=== PATIENT | male | born 1975 ===

== ENCOUNTER 2023-03-24 10:47 | Emergency (ER) | payer OTHER, MEDICAID, SELFPAY ==
[2023-03-24 10:49] VITALS: BP 139/106; PULSE 88; RESP 15; TEMP 36.6; O2SAT 97; BMI 36.1
--- NOTE | 2023-03-24 14:58 | PC.NURSE ---
pt states it feels worse when he is sitting upright and best when he is laying down. was seen at the [facility] and got an EKG done. is hoping to hear the results of that today.
--- NOTE | 2023-03-24 15:33 | DI.RAD.S_ITS ---
PROCEDURE: XR CHEST 1V INDICATIONS: chest pain TECHNIQUE: One view of the chest was acquired. COMPARISON: None. FINDINGS: Surgical changes and devices: None. Lungs and pleura: Lungs are clear. No pleural effusions or pneumothorax. Mediastinum: Mediastinal contours appear normal. Heart size is normal. Bones and chest wall: No suspicious bony lesions. Overlying soft tissues appear unremarkable. IMPRESSION: No acute cardiopulmonary process. Dictated by: Leo Gu M.D. on 03/24/2023 at 15:51 Approved by: Leo Gu M.D. on 03/24/2023 at 15:53
--- NOTE | 2023-03-24 16:03 | ED_ITS ---
HPI - Extremity Injury (Upper) <Tanya Lo PA-C - Last Filed: 03/24/23 20:58> General Chief Complaint: Extremity Injury, Upper Stated Complaint: sent by [facility] pain in LT arm Time Seen by Provider: 03/24/23 15:30 Source: patient Mode of arrival: Ambulatory History of Present Illness HPI narrative: This is a 48-year-old male who presents with concern for a gout attack in his left foot that has been present for a few weeks and is gradually resolving but still quite painful and was also sent by the walk-in clinic for concern for possible cardiac problem due to left arm pain. Patient states he has had some aching sensation in his left biceps for about the past week he says that he did not do anything to injure it has not been overusing it and the pain has not been getting worse but has also not improved. He states he does not notice it as much when he is laying flat but he does notice it more when he is sitting upright. Not noticed any tingling numbness in his hands or change in sensation or difference in temperature. He has never had pain like this in his arm before he says it is quite mild but it is bothersome and that the walk-in clinic would only see him for 1 problem and they were most concerned that this could be cardiac and so they did not evaluate him for his gout which is really what he came in for. He is a nonsmoker but does note that since he got out of correction he has been on house arrest/with a bracelet on and has been at home quite a bit sitting on the couch and watching TV. He does get up and move around. He states his gout is similar to previous episodes he has not had it for about 6 years although he states he has been living on hot dogs and lunch meat and he suspects this might be why this happened. He states his base of his great toe was very inflamed and swollen and red and tender a couple weeks ago has gradually subsided but still painful to walk. He denies chest pain, neck pain, shortness of breath, back pain or any other symptoms. Related Data Allergies Allergy/AdvReac Type Severity Reaction Status Date / Time No Known Drug Allergies Allergy Verified 03/24/23 10:49 Review of Systems <Tanya Lo PA-C - Last Filed: 03/24/23 20:58> Review of Systems Narrative: See HPI Patient History <Tanya Lo PA-C - Last Filed: 03/24/23 20:58> Surgical History Anesthesia History of vasectomy (~2013) Family History Grandmother Diabetes mellitus Social History Smoking Status: Unknown if ever smoked Smoking Status: Unknown if ever smoked alcohol intake frequency: holidays/special occasions only Substance Use Type: does not use Exam <Tanya Lo PA-C - Last Filed: 03/24/23 20:58> Narrative Exam Narrative: GENERAL: 48 year old patient appears stated age. Well-developed patient, in mild distress. HEAD: Atraumatic. Normocephalic. EYES: Pupils equal round and reactive. Extraocular motions intact. No scleral icterus. No injection or drainage. ENT: Nose without bleeding, purulent drainage. Airway patent. NECK: Trachea midline. Non tender CARDIOVASCULAR: Regular rate and rhythm without murmurs, gallops, or rubs. RESPIRATORY: Clear to auscultation. Breath sounds equal bilaterally. No wheezes, rales, or rhonchi. GASTROINTESTINAL: Abdomen soft, non-tender, nondistended. EXTREMITIES: There is no obvious swelling, there is no tenderness, there is no erythema there is no fluctuance or induration present in the area of the patient's pain in his left low mid biceps. It is not possible to recreate or worsen his bicep pain discomfort with palpation or movement. He has strong equal note teller skin color is equal bilaterally in both hands, pulse is strong 2+ b ilaterally radial. The affected left MTP joint is mildly erythematous mildly swollen and is tender to touch consistent with gout. Plantar surface of the foot is without ulcers lesion or broken skin. No edema or joint tenderness. BACK: Nontender without deformity or crepitance. No flank tenderness. NEURO: AOx3. SKIN: No rash or erythema of visible areas Initial Vital Signs Initial Vital Signs: Vital Signs Temperature 97.8 F 03/24/23 10:49 Pulse Rate 88 03/24/23 10:49 Respiratory Rate 15 03/24/23 10:49 Blood Pressure 139/106 H 03/24/23 10:49 Pulse Oximetry 97 03/24/23 10:49 Oxygen Delivery Method Room Air 03/24/23 10:49 <Marco Huff MD - Last Filed: 03/31/23 04:55> Initial Vital Signs Initial Vital Signs: Vital Signs Temperature 97.8 F 03/24/23 10:49 Pulse Rate 88 03/24/23 10:49 Respiratory Rate 15 03/24/23 10:49 Blood Pressure 139/106 H 03/24/23 10:49 Pulse Oximetry 97 03/24/23 10:49 Oxygen Delivery Method Room Air 03/24/23 10:49 Course <Tanya Lo PA-C - Last Filed: 03/24/23 20:58> Orders Ordered: ED Orders 03/24/23 15:33 XR chest 1V Stat 03/24/23 15:53 Complete Blood Count AUTO DIFF Stat Comprehensive Metabolic Panel Stat D Dimer Stat Lipase Stat Troponin & CK Cardiac Panel Stat Vital Signs Vital signs: Vital Signs - 8 hr 03/24/23 10:49 Temperature 97.8 F Pulse Rate 88 Respiratory Rate 15 Blood Pressure 139/106 H Pulse Oximetry 97 Oxygen Delivery Method Room Air <Marco Huff MD - Last Filed: 03/31/23 04:55> Orders Ordered: ED Orders 03/24/23 15:33 XR chest 1V Stat 03/24/23 15:53 Complete Blood Count AUTO DIFF Stat Comprehensive Metabolic Panel Stat D Dimer Stat Lipase Stat Troponin & CK Cardiac Panel Stat Vital Signs Vital signs: Vital Signs - 8 hr 03/24/23 10:49 Temperature 97.8 F Pulse Rate 88 Respiratory Rate 15 Blood Pressure 139/106 H Pulse Oximetry 97 Oxygen Delivery Method Room Air MDM - Extremity Injury (Upper) <Tanya Lo PA-C - Last Filed: 03/24/23 20:58> Differential Diagnosis Differential diagnosis: Likely other (muscle strain, sprain, nerve compression, DVT) Medical Records Attestation: I reviewed the patient's medical records. Lab Data 03/24/23 15:53 03/24/23 15:53 Labs: Lab Results 03/24/23 03/24/23 03/24/23 Range/Units 15:53 15:53 15:53 WBC 8.1 (4.5-11.0) X10^3/uL RBC 5.34 (4.5-5.9) X10^6/uL Hgb 15.5 (13.5-17.5) g/dL Hct 44.1 (41-53) % MCV 82.7 (80-100) fL MCH 29.1 (26-34) PG MCHC 35.2 (30-36) % RDW 13.1 (11.6-14.8) % Plt Count 306 (150-400) X10^3/uL Neut % (Auto) 61.8 (50-75) % Lymph % (Auto) 26.9 (25-40) % [facility] % (Auto) 8.4 (3-14) % Eos % (Auto) 2.4 (2-4) % Baso % (Auto) 0.5 (0-2) % Neut # (Auto) 5000 (8292-5633) /uL Lymph # (Auto) 2200 (7331-3927) /uL [facility] # (Auto) 700 (0-900) /uL Eos # (Auto) 200 (0-450) /uL Baso # (Auto) 0 (0-100) /uL D-Dimer 338 (<500) ng/ml Sodium 138 (137-145) mmol/L Potassium 4.1 (3.4-5.1) mmol/L Chloride 98 (98-107) mmol/L Carbon Dioxide 28 (22-32) mmol/L BUN 15 (9-20) mg/dL Creatinine 0.94 (0.66-1.25) mg/dL Estimated GFR > 60 (>60) mL/min BUN/Creatinine Ratio 16.0 (6-22) Glucose 103 H (70-100) mg/dL Calcium 9.4 (8.4-10.2) mg/dL Total Bilirubin 0.6 (0.2-1.3) mg/dL AST 22 (17-59) IU/L ALT 17 (<50) IU/L Alkaline Phosphatase 96 (38-126) U/L Total Creatine Kinase 74 (55-170) U/L CK-MB (CK-2) TNP CK-MB (CK-2) Rel Index TNP Troponin I < 0.012 (0.01-0.034) ng/mL Total Protein 8.5 H (6.3-8.2) g/dL Albumin 4.8 (3.5-5.0) g/dL Globulin 3.7 (1.7-4.1) g/dL Albumin/Globulin Ratio 1.3 (1.0-2.8) Lipase 91 (23-300) U/L Imaging Data Chest x-ray: My Impression: I agree with radiologist's interpretation Radiologist's Impression: [address] [address] XRay Report Signed Patient: Timbo Medina MR#: [id number] : 1975 Acct:[id number] Age/Sex: 48 / M Date of Service: 03/24/23 Loc: ED Accession Number: [id number] ?? Procedure: XR chest 1V Ordering Provider: Tanya Lo P.A-C PROCEDURE:? XR CHEST 1V ? INDICATIONS:? chest pain ? TECHNIQUE:? One view of the chest was acquired.? ? COMPARISON:? None. ? FINDINGS:? ? Surgical changes and devices:? None.? ? Lungs and pleura:? Lungs are clear.? No pleural effusions or pneumothorax.? ? Mediastinum:? Mediastinal contours appear normal.? Heart size is normal.? ? Bones and chest wall:? No suspicious bony lesions.? Overlying soft tissues appear unremarkable.? ? IMPRESSION:? No acute cardiopulmonary process. ? ? ? Dictated by: Leo Gu M.D. on 03/24/2023 at 15:51 ? ? Approved by: Leo Gu M.D. on 03/24/2023 at 15:53?? ECG Data Attestation: I personally reviewed and interpreted this ECG as follows: Interpretation: NSR heart rate 100 QTC 428 milliseconds, no ectopy or ST changes noted. Also reviewed byJoie Huff [facility] Narrative Medical decision making narrative: Is a well-appearing 48-year-old male who presents sent by walk-in clinic with concern for possible cardiac issue given left biceps pain. Present for 1 week. Patient himself is most concern for a gout episode affecting his left MTP which has been present for 2 weeks still painful. Etiology of patient's biceps pain is unclear, unfortunately patient is unable to stay in the emergency department for full evaluation would prefer to obtain ultrasound given there is no obvious evidence or history consistent with musculoskeletal etiology and location of his pain seems unlikely to be cardiac in nature, though it could possibly represent a DVT, a D-dimer is also ordered. Patient's foot exam is consistent with gout and prescription today for prednisone. Patient is counseled regarding monitoring for new or worsening symptoms of his arm and that if he leaves prior to return of all results/desired workup/imaging study he will have to sign Against Medical Advice. Patient is in understanding. Return precautions provided, follow-up plan discussed, all questions answered. Did review the patient's labs after he left the emergency department and he did not have an elevated troponin, also did not have an elevated D-dimer, x-ray looks good an EKG was also unremarkable. Given patient's left arm symptoms have been present for about a week I am not suspicious for cardiac etiology. <Marco Huff MD - Last Filed: 03/31/23 04:55> Lab Data Labs: Lab Results 03/24/23 03/24/23 03/24/23 Range/Units 15:53 15:53 15:53 WBC 8.1 (4.5-11.0) X10^3/uL RBC 5.34 (4.5-5.9) X10^6/uL Hgb 15.5 (13.5-17.5) g/dL Hct 44.1 (41-53) % MCV 82.7 (80-100) fL MCH 29.1 (26-34) PG MCHC 35.2 (30-36) % RDW 13.1 (11.6-14.8) % Plt Count 306 (150-400) X10^3/uL Neut % (Auto) 61.8 (50-75) % Lymph % (Auto) 26.9 (25-40) % [facility] % (Auto) 8.4 (3-14) % Eos % (Auto) 2.4 (2-4) % Baso % (Auto) 0.5 (0-2) % Neut # (Auto) 5000 (6674-7282) /uL Lymph # (Auto) 2200 (1455-0396) /uL [facility] # (Auto) 700 (0-900) /uL Eos # (Auto) 200 (0-450) /uL Baso # (Auto) 0 (0-100) /uL D-Dimer 338 (<500) ng/ml Sodium 138 (137-145) mmol/L Potassium 4.1 (3.4-5.1) mmol/L Chloride 98 (98-107) mmol/L Carbon Dioxide 28 (22-32) mmol/L BUN 15 (9-20) mg/dL Creatinine 0.94 (0.66-1.25) mg/dL Estimated GFR > 60 (>60) mL/min BUN/Creatinine Ratio 16.0 (6-22) Glucose 103 H (70-100) mg/dL Calcium 9.4 (8.4-10.2) mg/dL Total Bilirubin 0.6 (0.2-1.3) mg/dL AST 22 (17-59) IU/L ALT 17 (<50) IU/L Alkaline Phosphatase 96 (38-126) U/L Total Creatine Kinase 74 (55-170) U/L CK-MB (CK-2) TNP CK-MB (CK-2) Rel Index TNP Troponin I < 0.012 (0.01-0.034) ng/mL Total Protein 8.5 H (6.3-8.2) g/dL Albumin 4.8 (3.5-5.0) g/dL Globulin 3.7 (1.7-4.1) g/dL Albumin/Globulin Ratio 1.3 (1.0-2.8) Lipase 91 (23-300) U/L Discharge Plan Departure Patient Disposition: Left Against Medical Advice Clinical Impression: Gout attack, Arm pain, anterior Activity Restrictions/Additional Instructions: Thank you for letting us be part of your care today in the emergency department. Your foot exam and history today are consistent with a gout flare and I prescribed prednisone for you for this. Unfortunately you had to leave against medical advice prior to return of all labs and imaging studies, so I can not give you the results from these--we were evaluating you for possible cardiac problem given your left arm pain and can not rule this out without return of res ults. I would recommend that if your arm pain worsens or changes in nature or if you have any new or concerning symptoms over the next few days to weeks that you get this rechecked. Otherwise if it resolves reasonable to follow-up with your primary care provider as planned in April. Stand Alone Forms: Against Medical Advice <Marco Huff MD - Last Filed: 03/31/23 04:55> Cosign ED Attending Coshayleeature Attestation: I was immediately available in the department for consultation. ?This doc umentation has been reviewed and I agree with assessment and plan. Supervised by Marco Huff MD
[2023-03-24 16:19] LABS: Add Manual Diff / Slide Review NO; Basophils Absolute Auto 0 /uL (0-100); Basophils Percent Auto 0.5 % (0-2); Eosinophils Absolute Auto 200 /uL (0-450); Eosinophils Percent Auto 2.4 % (2-4); Hematocrit 44.1 % (41-53); Hemoglobin 15.5 g/dL (13.5-17.5); Lymphocytes Absolute Auto 2200 /uL (1100-4500); Lymphocytes Percent Auto 26.9 % (25-40); Mean Corpuscular HGB Conc 35.2 % (30-36); Mean Corpuscular Hemoglobin 29.1 PG (26-34); Mean Corpuscular Volume 82.7 fL (80-100); Monocytes Absolute Auto 700 /uL (0-900); Monocytes Percent Auto 8.4 % (3-14); Neutrophils Absolute Auto 5000 /uL (1500-7000); Neutrophils Percent Auto 61.8 % (50-75); Platelet Count 306 X10^3/uL (150-400); Red Blood Cell Count 5.34 X10^6/uL (4.5-5.9); Red Cell Distribution Width 13.1 % (11.6-14.8); White Blood Cell Count 8.1 X10^3/uL (4.5-11.0)
[2023-03-24 16:29] LABS: D Dimer 338 ng/ml (<500)
[2023-03-24 16:36] LABS: Alanine Aminotransferase 17 IU/L (<50); Albumin 4.8 g/dL (3.5-5.0); Albumin Globulin Ratio 1.3 (1.0-2.8); Alkaline Phosphatase 96 U/L (38-126); Aspartate Aminotransferase 22 IU/L (17-59); Bilirubin Total 0.6 mg/dL (0.2-1.3); Blood Urea Nitrogen 15 mg/dL (9-20); Calcium 9.4 mg/dL (8.4-10.2); Carbon Dioxide 28 mmol/L (22-32); Chloride 98 mmol/L (98-107); Creatine Kinase 74 U/L (55-170); Estimated Glomerular Filt Rate > 60 mL/min (>60); Globulin 3.7 g/dL (1.7-4.1); Glucose 103 mg/dL (70-100); HEMOLYSIS < 15 (0-50); Lipase 91 U/L (23-300); Potassium 4.1 mmol/L (3.4-5.1); Sodium 138 mmol/L (137-145); Total Protein 8.5 g/dL (6.3-8.2)
[2023-03-24 16:50] LABS: Troponin I < 0.012 ng/mL (0.01-0.034)
== END 2023-03-24 16:26 | disposition left against medical advice (07) ==
PROVIDERS: Emergency Provider Student in an Organized Health Care Education/Training Program
DX: M10.9 Gout, unspecified (principal); M79.602 Pain in left arm; R07.9 Chest pain, unspecified
CPT/HCPCS: 36415; 71045; 80053; 82550; 83690; 84484; 85025; 85379; 93005; 99281; 99284

== ENCOUNTER 2025-02-01 12:07 | Emergency (ER) | payer SELFPAY ==
[2025-02-01] VITALS (7 sets, daily range): BP systolic 140–143; BP diastolic 88–90; PULSE 101–116; RESP 16–20; TEMP 36.5–37.1; O2SAT 98–100; BMI 31.7
--- NOTE | 2025-02-01 12:35 | DI.US.S_ITS ---
PROCEDURE: US PERIPH VENOUS LOW EXTREM LT INDICATIONS: POSTERIOR KNEE PAIN TECHNIQUE: Real-time imaging, as well as color and pulse Doppler interrogation, were performed of the lower extremity deep veins from the inguinal ligament to the popliteal fossa, with documentation of the visualized calf veins. COMPARISON: None. FINDINGS: The common femoral, femoral, popliteal, and the visualized calf veins are normally compressible, and free of intraluminal thrombus. Color and pulse Doppler demonstrate normal phasic intraluminal flow. There is normal augmentation response to distal compression maneuver. Incidentally noted left popliteal cyst measuring 2.2 x 2.2 cm. Moderate knee effusion also present. IMPRESSION: No findings of lower extremity deep venous thrombosis. Dictated by: Panchito Avilez M.D. on 02/01/2025 at 13:25 Approved by: Panchito Avilez M.D. on 02/01/2025 at 13:25
--- NOTE | 2025-02-01 15:01 | ED_ITS ---
HPI - Extremity Problem <Namrata Bolton PA-C - Last Filed: 02/01/25 17:21> General Chief complaint: Extremity Problem,Nontraumatic Stated complaint: Left leg pain Time Seen by Provider: 02/01/25 14:11 Source: patient Mode of arrival: Family Vehicle History of Present Illness HPI Narrative: Mr. Medina is a very pleasant 49-year-old male with a past medical history of hypertension, BPH, PTSD, GERD presents to the emergency department for left knee pain x2 days. Patient states when he woke up about 2 days ago he noticed pain on the back of his left knee. He attempted to continue working despite this pain however was sent home from work. States that at this time the left knee pain is worse and he has pain with any flexion or extension of the knee. Denies any direct trauma to the knee. Denies any redness of the knee, fevers, flu-like symptoms. No pain on the front of the knee. No swelling of the lower leg or thigh. States that he did elevate and ice the knee last night which improved the swelling. He did not take any medications prior to arrival today. Related Data Home Medications Medication Instructions Recorded Confirmed tamsulosin 0.4 mg capsule 0.4 mg PO DAILY 04/05/23 04/05/23 Previous Rx's Medication Instructions Recorded lisinopril 20 mg tablet 20 mg PO DAILY #90 tabs 04/05/23 naproxen 500 mg tablet 500 mg PO BID PRN pain #20 tabs 02/01/25 Allergies Allergy/AdvReac Type Severity Reaction Status Date / Time No Known Drug Allergies Allergy Verified 02/01/25 12:32 Review of Systems <Namrata Bolton PA-C - Last Filed: 02/01/25 17:21> Review of Systems ROS Unobtainable: All systems reviewed & are unremarkable except as noted in HPI and below Patient History <Namrata Bolton PA-C - Last Filed: 02/01/25 17:21> Medical History KEIRA (generalized anxiety disorder) PTSD (post-traumatic stress disorder) BPH (benign prostatic hyperplasia) Benign essential HTN Surgical History Anesthesia History of vasectomy (~2013) Family History Grandmother Diabetes mellitus Social History Smoking Status: Never smoker Smoking Status: Never smoker alcohol intake frequency: holidays/special occasions only Exam <Namrata Bolton PA-C - Last Filed: 02/01/25 17:21> Narrative Exam Narrative: GENERAL: 49 year old patient appears stated age. Well-developed patient, in no acute distress. HEAD: Atraumatic. Normocephalic. NECK: Trachea midline. Cervical ROM intact. CARDIOVASCULAR: Mildly elevated rate and regular rhythm. RESPIRATORY: ?Nonlabored respirations. ?Speaking in clear, full sentences. ?Clear to auscultation. EXTREMITIES: Patient is sitting with left knee flexed approximately 90?. He is unwilling/unable to flex or extend the knee. There is no deformity of the knee, no redness, no swelling, no increased warmth. Mild tenderness palpation of popliteal fossa. After pain control. Patient has full flexion and extension of the left knee and no reproducible joint laxity. NEURO: AOx3. ?Clear speech. SKIN: No rash or erythema of visible areas Initial Vital Signs Initial Vital Signs: Vital Signs Temperature 97.7 F 02/01/25 12:22 Pulse Rate 106 H 02/01/25 12:22 Respiratory Rate 20 02/01/25 12:22 Blood Pressure 143/90 H 02/01/25 12:22 Pulse Oximetry 100 02/01/25 12:22 Oxygen Delivery Method Room Air 02/01/25 12:22 <Chencho Rutherford MD - Last Filed: 02/01/25 20:51> Initial Vital Signs Initial Vital Signs: Vital Signs Temperature 97.7 F 02/01/25 12:22 Pulse Rate 106 H 02/01/25 12:22 Respiratory Rate 20 02/01/25 12:22 Blood Pressure 143/90 H 02/01/25 12:22 Pulse Oximetry 100 02/01/25 12:22 Oxygen Delivery Method Room Air 02/01/25 12:22 Course <Namrata Bolton PA-C - Last Filed: 02/01/25 17:21> Orders Ordered: ED Orders 02/01/25 12:35 US periph venous low extrem lt Stat 02/01/25 15:08 XR knee LT 3V Stat Discontinued Medications Hydrocodone Bitart/Acetaminophen (Hydrocodone/Acet 5/325 Tablet) 1 tab PO NOW ONE Stop: 02/01/25 15:09 Last Admin: 02/01/25 15:26 Dose: 1 tab Documented By: ZAIN Ketorolac Tromethamine (Ketorolac 30 Mg/Ml Vial) 30 mg IM NOW ONE Stop: 02/01/25 15:09 Last Admin: 02/01/25 15:20 Dose: 30 mg Documented By: ZAIN Vital Signs Vital signs: Vital Signs - 8 hr 02/01/25 13:15 02/01/25 15:05 02/01/25 15:20 Temperature 98.7 F 98.6 F Pulse Rate 101 H 113 H Respiratory Rate 18 18 Blood Pressure 140/88 Pulse Oximetry 98 99 Oxygen Delivery Method Room Air Room Air 02/01/25 15:26 02/01/25 16:03 02/01/25 16:50 Temperature 98.6 F Pulse Rate 115 H 116 H Respiratory Rate 16 16 Blood Pressure Pulse Oximetry 98 98 Oxygen Delivery Method Room Air Room Air <Chencho Rutherford MD - Last Filed: 02/01/25 20:51> Orders Ordered: ED Orders 02/01/25 12:35 periph venous low extrem lt Stat 02/01/25 15:08 XR knee LT 3V Stat Discontinued Medications Hydrocodone Bitart/Acetaminophen (Hydrocodone/Acet 5/325 Tablet) 1 tab PO NOW ONE Stop: 02/01/25 15:09 Last Admin: 02/01/25 15:26 Dose: 1 tab Documented By: ZAIN Ketorolac Tromethamine (Ketorolac 30 Mg/Ml Vial) 30 mg IM NOW ONE Stop: 02/01/25 15:09 Last Admin: 02/01/25 15:20 Dose: 30 mg Documented By: ZAIN Vital Signs Vital signs: Vital Signs - 8 hr 02/01/25 13:15 02/01/25 15:05 02/01/25 15:20 Temperature 98.7 F 98.6 F Pulse Rate 101 H 113 H Respiratory Rate 18 18 Blood Pressure 140/88 Pulse Oximetry 98 99 Oxygen Delivery Method Room Air Room Air 02/01/25 15:26 02/01/25 16:03 02/01/25 16:50 Temperature 98.6 F Pulse Rate 115 H 116 H Respiratory Rate 16 16 Blood Pressure Pulse Oximetry 98 98 Oxygen Delivery Method Room Air Room Air MDM - Extremity (Nontraumatic) <Namrata Bolton PA-C - Last Filed: 02/01/25 17:21> Medical Records Attestation: I reviewed the patient's medical records. Imaging Data Left Knee X-Ray: Radiologist's Impression: PROCEDURE: XR KNEE LT 3V INDICATIONS: severe posterior knee pain; no trauma TECHNIQUE: 3 views of the knee were acquired. COMPARISON: None. FINDINGS: Bones: No fractures or dislocations. No patellar subluxation. No suspicious bony lesions. Soft tissues: No significant joint effusion. No suspicious soft tissue calcifications. IMPRESSION: No acute left knee fracture or dislocation. No significant joint effusion. If indicated, MRI of knee can be done for evaluation of internal derangement. LLE US: Radiologist's Impression: PROCEDURE: US PERIPH VENOUS LOW EXTREM LT INDICATIONS: POSTERIOR KNEE PAIN TECHNIQUE: Real-time imaging, as well as color and pulse Doppler interrogation, were performed of the lower extremity deep veins from the inguinal ligament to the popliteal fossa, with documentation of the visualized calf veins. COMPARISON: None. FINDINGS: The common femoral, femoral, popliteal, and the visualized calf veins are normally compressible, and free of intraluminal thrombus. Color and pulse Doppler demonstrate normal phasic intraluminal flow. There is normal augmentation response to distal compression maneuver. Incidentally noted left popliteal cyst measuring 2.2 x 2.2 cm. Moderate knee effusion also present. IMPRESSION: No findings of lower extremity deep venous thrombosis. MDM Narrative Medical decision making narrative: 49-year-old male with a past medical history of hypertension, BPH, PTSD, GERD presents to the emergency department for left knee pain x2 days. Differential diagnosis includes but is not limited to arthritis, strain, sprain, fracture, soft tissue injury, gout, DVT, Coleman cyst, etc. On exam patient is in no acute distress, nontoxic appearing, vital signs within normal limits except for mildly elevated blood pressure. He is holding his left knee 90? of flexion, unwilling to extend or flex any further due to pain. Exam limited. The knee is not red, hot, swollen, the patient does not have a fever, no clinical concerns for infection at this time.. Ultrasound obtained in triage reveals no DVT, he does have a knee effusion and a popliteal cyst. We will treat pain with Toradol and hydrocodone in order to perform more extensive knee exam, we will obtain x-ray of the knee. Patient's knee pain improved significantly during ED stay, full ROM. He was placed into a left knee Reji wrap. He declines crutches states he has them. X- ray reveals no acute bony abnormalities or effusion. Suspect patient's pain is related to effusion, Coleman cyst. Recommended rice therapy, naproxen for pain in addition to acetaminophen. Patient does have persistently elevated heart rate in the low 100s however this appears baseline for him dating back to even 2022. Discussed strict ED return precautions with the patient and advised prompt follow up with PCP for further evaluation. He is agreeable with the plan and stable for discharge home. Discharge Plan Departure Patient Disposition: Home Clinical Impression: Acute pain of left knee, Effusion of left knee, Unruptured cyst of left popliteal space Instructions: DI for Knee Effusion Activity Restrictions/Additional Instructions: Thank you for coming to the emergency department. Today you were evaluated for left knee pain. Your ultrasound revealed a cyst behind her left knee and fluid in the knee. Your x-ray does not show any bony abnormalities. I have prescribed you naproxen which is an anti-inflammatory pain medication to take twice a day as needed for pain. Please also take Tylenol with this. Please use RICE therapy for your pain in addition to naproxen/acetaminophen. Rest the painful area. Ice the area of pain/swelling for at least 15 minutes, 4x a day. Compress the area of swelling using a brace, wrap, or splint if applied. Elevate the painful or swollen extremity by supporting it above the level of the heart with pillows when sitting or laying. Please follow up with your primary care doctor within the next 2-3 days for ER follow-up. (If you do not have a PCP you can call [phone]. ?to schedule an appointment with an [facility] Primary Care Provider) IF YOU DEVELOP ANY NEW OR WORSENING SYMPTOMS, RETURN TO THE ER! Please read the attached instructions, they highlight more specific treatments and interventions for you at home. Thank you for letting me participate in your care, Namrata Bolton PA-C Prescriptions: New naproxen 500 mg tablet 500 mg PO BID PRN (Reason: pain) Qty: 20 0RF Rx Instructions: Take with food/meal. No Action tamsulosin 0.4 mg capsule 0.4 mg PO DAILY lisinopril 20 mg tablet 20 mg PO DAILY Qty: 90 3RF Referrals: Matthieu Correa DO [Primary Care Provider] - Stand Alone Forms: Patient Portal/API/Survey, Work Release Note ED Sign-out <Chencho Rutherford MD - Last Filed: 02/01/25 20:51> Cosign ED Attending Cosignature Attestation: I was immediately available in the department for consultation. This documentation has been reviewed and I agree with assessment and plan. Supervised by Chencho Rutherford MD
--- NOTE | 2025-02-01 15:08 | DI.RAD.S_ITS ---
PROCEDURE: XR KNEE LT 3V INDICATIONS: severe posterior knee pain; no trauma TECHNIQUE: 3 views of the knee were acquired. COMPARISON: None. FINDINGS: Bones: No fractures or dislocations. No patellar subluxation. No suspicious bony lesions. Soft tissues: No significant joint effusion. No suspicious soft tissue calcifications. IMPRESSION: No acute left knee fracture or dislocation. No significant joint effusion. If indicated, MRI of knee can be done for evaluation of internal derangement. Dictated by: Tenzin Ramirez M.D. on 02/01/2025 at 15:49 Approved by: Tenzin Ramirez M.D. on 02/01/2025 at 15:51
[2025-02-01] MEDS: KETOROLAC 30 MG/ML VIAL IM (15:20)
[2025-02-01] MEDS: HYDROCODONE/ACET 5/325 TABLET 1 TAB PO (15:26)
== END 2025-02-01 16:50 | disposition home or self-care (01) ==
PROVIDERS: Emergency Provider Physician Assistant; PCP Family Medicine
DX: M25.562 Pain in left knee (principal); M25.462 Effusion, left knee; M71.22 Synovial cyst of popliteal space [Baker], left knee
CPT/HCPCS: 73562; 93971; 96372; 99283; J1885